=== PATIENT | female | born 1990 | race Caucasian/White ===

== ENCOUNTER 2018-01-30 10:54 | Emergency (ER) | payer MEDICAID ==
[~2018-01-30] VITALS: Ht 154.9 cm; Wt 58.2 kg
[2018-01-30] MEDS ORDERED: ACETAMINOPHEN 325MG TABLET PO ONE (13:00)
[2018-01-30 14:31] LABS: CLARITY URINE CLEAR (CLEAR); COLOR URINE YELLOW (YELLOW); KETONES URINE NEGATIVE (NEGATIVE); LEUKOCYTE ESTERASE URINE NEGATIVE (NEGATIVE); NITRITE URINE NEGATIVE (NEGATIVE); OCCULT BLOOD URINE NEGATIVE (NEGATIVE); PROTEIN URINE NEGATIVE (NEGATIVE); SPECIFIC GRAVITY URINE 1.013 (1.005-1.030); UROBILINOGEN URINE 0.2 E.U./dL (0.2-1.0)
[2018-01-30 15:03] VITALS: BP 120/61
== END 2018-01-30 15:38 | disposition home or self-care (01) ==
LOC: ER 11:39
DX: O26.891 Other specified pregnancy related conditions, first trimester (principal); R10.31 Right lower quadrant pain; R10.32 Left lower quadrant pain; Z3A.09 9 weeks gestation of pregnancy
CPT/HCPCS: 36415; 76801; 81003; 81025; 84702; 99285

== ENCOUNTER 2018-07-12 20:51 | Observation (INO) | payer MEDICAID ==
[~2018-07-12] VITALS: Ht 152.4 cm; Wt 69.4 kg
[2018-07-12] MEDS ORDERED: LACTATED RINGERS 1,000 ML IV SCH (22:00)
[2018-07-12] MEDS ORDERED: FOLI0.4T2 MT (22:04)
[2018-07-12] MEDS ORDERED: FERR-71 MT (22:04)
[2018-07-12] MEDS ORDERED: PREN1TAB78 MT (22:04)
[2018-07-12 22:54] LABS: CLARITY URINE CLOUDY (CLEAR); COLOR URINE ORANGE (YELLOW); KETONES URINE NEGATIVE (NEGATIVE); LEUKOCYTE ESTERASE URINE 1+ (NEGATIVE); NITRITE URINE NEGATIVE (NEGATIVE); OCCULT BLOOD URINE 3+ (NEGATIVE); PH URINE 7.5 (4.5-8.0); PROTEIN URINE 1+ (NEGATIVE); SPECIFIC GRAVITY URINE 1.014 (1.005-1.030); UROBILINOGEN URINE 0.2 E.U./dL (0.2-1.0)
== END 2018-07-13 01:25 | disposition home or self-care (01) ==
LOC: 8 EST LDRP 20:51
PROVIDERS: ADMIT Obstetrics & Gynecology; ATTEND Obstetrics & Gynecology
DX: O26.853 Spotting complicating pregnancy, third trimester (principal); O26.893 Other specified pregnancy related conditions, third trimester; N89.8 Other specified noninflammatory disorders of vagina; M54.9 Dorsalgia, unspecified; R10.30 Lower abdominal pain, unspecified; Z3A.33 33 weeks gestation of pregnancy
CPT/HCPCS: 36415; 76805; 76818; 81003; 86850; 86900; 86901; 99281; G0378; 96360; 96361